=== PATIENT | male | born 1975 | race Caucasian/White ===

== ENCOUNTER 2016-05-05 08:47 | Emergency (ER) | payer BC ==
[2016-05-05 09:11] VITALS: BP 169/94
--- NOTE | 2016-05-05 09:44 | ERNOTE ---
Lower Extremity HPI - Narrative Date of Service: 05/05/16 - General Lower Extremities Pain: ankle: right Time Seen by Provider: 05/05/16 09:44 Source: patient Exam Limitations: no limitations - Immun/Allergies/Home Medications Immunizations: IMMUNIZATION HX Immunizations Up to Date Yes History of Influenza Vaccine Yes Hx Pneumococcal Vaccination No Allergies/Adverse Reactions: Allergies Allergy/AdvReac Type Severity Reaction Status Date / Time No Known Allergies Allergy Unverified 05/05/16 09:20 Home Medications: HOME MEDICATIONS Amlodipine Besylate/Benazepril [Amlodipine-Benazepril 2.5-10] 1 each PO DAILY [Last Taken 05/05/16 08:30] Naproxen [Naprosyn] 500 mg PO BID #60 tablet 05/05/16 [Last Taken Unknown] Prednisone [Deltasone] 20 mg PO BID #10 tablet 05/05/16 [Last Taken Unknown] Pregabalin [Lyrica] 25 mg PO TID 05/05/16 [Last Taken 05/05/16 07:00] - History of Present Illness Narrative: She presents with pain and swelling in the right leg: With no known injury. She states that it is somewhat painful to walk on that foot because of ankle pain and swelling. Onset of symptoms was approximately 2 days ago patient denies any alcohol abuse also denies any excess eating of sugars or red meats. Occurred: other - 2 days ago Location of Incident: work Method of Injury: Reports: no apparent injury Associated Symptoms: Reports: none Review of Systems - Review of Systems Constitutional: Present: no symptoms reported EYE: Present: no symptoms reported ENT: Present: no symptoms reported Respiratory: Present: no symptoms reported Cardiology: Present: no symptoms reported Gastrointestinal/Abdominal: Present: no symptoms reported Genitourinary: Present: no symptoms reported Musculoskeletal: Present: no symptoms reported Skin: Present: no symptoms reported Neurological: Present: no symptoms reported Endocrine: Present: no symptoms reported Hematologic/Lymphatic: Present: no symptoms reported Psych: Present: no symptoms reported - Patient's Past Medical History Patient History - Medical: No pertinent hx Patient History - Cardiac/Respiratory: Hypertension Patient History - Cancer: No Hx of Cancer Patient History - Other: None - Family History Mother Family History - Medical: Diabetes Type 1 Family History - Cardiac/Respiratory: No pertinent hx Family History - Cancer: Breast - Social History Living Situations: spouse Abuse History: No History of abuse Psych History: No pertinent hx Smoking Status: Never smoker Have you smoked in the past 12 months: No Do you dip or chew tobacco: No Patient requests Smoking Cessation Consult: No Initiate information on Smoking Cessation: No Alcohol Use: none Drug Use: none - Immunizations Immunizations Up to Date: Yes Hx Pneumococcal Vaccination: No History of Influenza Vaccine: Yes Physical Exam - Physical Exam General Appearance: Present: wd/wn, alert, mild distress Eye Exam: Normal inspection: bilateral, PERRL: bilateral Ears, Nose, Throat: Present: normal ENT inspection, H, normal pharynx Neck: Present: normal inspection, nontender Respiratory: Present: no respiratory distress, normal breath sounds, no accessory muscle use, chest nontender, lungs clear Cardiovascular/Chest: Present: regular rate, rhythm, no murmur, normal peripheral pulses Gastrointestinal/Abdominal: Present: normal bowel sounds, nontender, nondistended, soft, no organomegaly Rectal Exam: Present: deferred Back Exam: Present: normal inspection, normal range of motion Extremity Exam: Present: normal range of motion, decreased range of motion - secondary to pain, joint swelling, extremity edema Neurological Exam: Present: alert, oriented, normal mood/affect Skin Exam: Present: normal color, warm/dry Lymphatic Exam: Present: no adenopathy ED Progress - Vital Signs Patient's Vital Signs:: I have reviewed the patient's vital signs. Vital Signs: Vital Signs 05/05/16 09:01 Temperature 37.3 C Pulse Rate 82 Respiratory 16 Rate Blood Pressure 169/94 O2 Sat by Pulse 96 Oximetry - X-Ray X-Ray #1 X-Ray: ankle - Progress/Reassessment Chief Complaint: Ankle Injury/ Pain Progress:: Unchanged - Transfer of Care Expected Disposition: Discharge Plan - Plan Plan: Patient appears to have a gout or pseudogout type of condition, at this point I believe we will start him on 5 days of prednisone and Naprosyn 500 mg twice a day for 30 days. He is to follow-up with his family doctor as it is probably time for some annual labs and possible physical examination. Departure Clinical Impression: Arthralgia Qualifiers: Joint pain location: ankle Laterality: right Qualified Code(s): M25.571 - Pain in right ankle and joints of right foot - Departure Disposition: Home self-care Condition: Good Instructions: Joint Pain Prescriptions: Naproxen [Naprosyn] 500 mg PO BID #60 tablet Prednisone [Deltasone] 20 mg PO BID #10 tablet
== END 2016-05-05 10:03 | disposition home or self-care (01) ==
LOC: ER 08:47
DX: M25.571 Pain in right ankle and joints of right foot (principal)